=== PATIENT | female | born 1985 | race Two or more races ===

== ENCOUNTER 2022-07-06 02:13 | Emergency (ER) | payer OTHER ==
[~2022-07-06] VITALS: Ht 167.6 cm; Wt 70.3 kg
== END 2022-07-06 04:30 | disposition home or self-care (01) ==
LOC: ER 02:13
DX: S61.210A Laceration without foreign body of right index finger without damage to nail, initial encounter (principal); X99.9XXA Assault by unspecified sharp object, initial encounter; Y93.89 Activity, other specified; Y92.89 Other specified places as the place of occurrence of the external cause; Y99.9 Unspecified external cause status